=== PATIENT | female | born 2000 | race Caucasian/White ===

== ENCOUNTER 2022-12-13 12:07 | Emergency (ER) | payer OTHER, SELFPAY ==
[2022-12-13 12:19] VITALS: BP 135/95; PULSE 99; RESP 16; TEMP 37.4; O2SAT 98; BMI 26.6
--- NOTE | 2022-12-13 12:31 | ED_ITS ---
HPI - Female Genitourinary General Chief complaint: Urogenital-Female Stated complaint: VAGINAL PAIN/DISCHARGE Time Seen by Provider: 12/13/22 12:20 Source: patient Mode of arrival: walk-in Limitations: no limitations History of Present Illness HPI Narrative: 22-year-old female presented for vaginal discharge and vaginal irritation. Had a slight discharge and had some very slight bleeding as well. She got tested for STDs three months ago and there were negative and she's been with the same person since then. She states she's not worried about STDs. No fever or vomiting or complaints of abdominal pain. Them present for the past several days. Related Data Home Medications Medication Instructions Recorded Confirmed escitalopram oxalate 20 mg tablet 20 mg PO DAILY 12/13/22 12/13/22 lamotrigine 100 mg tablet 100 mg PO DAILY 12/13/22 12/13/22 medroxyprogesterone 150 mg/mL 150 mg IM .q90 days 12/13/22 12/13/22 intramuscular suspension olanzapine 5 mg tablet mg 12/13/22 olanzapine 7.5 mg tablet 7.5 mg PO DAILY 12/13/22 12/13/22 propranolol 10 mg tablet 10 mg PO DAILY 12/13/22 12/13/22 solriamfetol 150 mg tablet (Sunosi) 150 mg PO DAILY 12/13/22 12/13/22 Previous Rx's Medication Instructions Recorded cephalexin 500 mg capsule 500 mg PO TID 7 days #21 caps 12/13/22 Allergies Allergy/AdvReac Type Severity Reaction Status Date / Time No Known Drug Allergies Allergy Verified 12/13/22 12:16 Review of Systems ROS Narrative A ten point review of systems is negative except as noted above. PFSH PFSH Social History Smoking status: Current every day smoker Exam Narrative Exam Narrative: Nurses note and vital signs reviewed and patient is not hypoxic. General: The patient appears well and in no apparent distress. Patient is resting comfortably on cart. Skin: Warm, dry, no pallor noted. There is no rash noted. Head: Normocephalic, atraumatic Eye: Normal conjunctiva, no drainage Ears, Nose, Mouth, and Throat: oral mucosa is moist. Nares patent. Cardiovascular: Regular Rate and Rhythm Respiratory: Patient is in no distress, no accessory muscle use, lungs are clear to auscultation, no wheezing, rales or rhonchi Back: non-tender GI: soft and nontender Musculoskeletal: The patient has no evidence of calf tenderness, no pitting edema, symmetrical pulses noted bilaterally Neurological: A&O, normal speech Psychiatric: Cooperative Constitutional Vital Signs, click to edit/add: Last Vital Signs Temp 99.4 F 12/13/22 12:19 Pulse 99 H 12/13/22 12:19 Resp 16 12/13/22 12:19 BP 135/95 H 12/13/22 12:19 Pulse Ox 98 12/13/22 12:19 O2 Del Method Room Air 12/13/22 12:19 Course Vital Signs Vital signs: Vital Signs Temperature 99.4 F 12/13/22 12:19 Pulse Rate 99 H 12/13/22 12:19 Respiratory Rate 16 12/13/22 12:19 Blood Pressure 135/95 H 12/13/22 12:19 Pulse Oximetry 98 12/13/22 12:19 Oxygen Delivery Method Room Air 12/13/22 12:19 Temperature 99.4 F 12/13/22 12:19 Pulse Rate 99 H 12/13/22 12:19 Respiratory Rate 16 12/13/22 12:19 Blood Pressure 135/95 H 12/13/22 12:19 Pulse Oximetry 98 12/13/22 12:19 Oxygen Delivery Method Room Air 12/13/22 12:19 MDM - Female Genitourinary MDM Narrative Medical decision making narrative: White blood cells are found in the urine and a culture is ordered and she is prescribed Keflex. Initial pelvic swabs are negative with GC and chlamydia pen ding. She'll follow-up with her foreign language stenographer. Treatment diagnosis and follow-up were discussed with the patient. Differential Diagnosis Differential diagnosis: Likely urinary tract infection, bacterial vaginosis, trichomoniasis, cervicitis and vaginitis Lab Data Attestation: I reviewed the patient's lab results. Labs: Lab Results 12/13/22 Range/Units 12:30 Urine Color Lt. yellow (YELLOW) Urine Clarity Slightly cloudy A (CLEAR) Urine pH 5.5 (5.0-9.0) Ur Specific [place] >=1.030 A (1.005-1.025) Urine Protein Negative (NEG/TRACE) mg/dL Urine Glucose (UA) Negative (NEGATIVE) mg/dL Urine Ketones Negative (NEGATIVE) mg/dL Urine Occult Blood Negative (NEGATIVE) Urine Nitrite Negative (NEGATIVE) Urine Bilirubin Negative (NEGATIVE) Urine Urobilinogen 0.2 (0.2-1.0) EU/dL Ur Leukocyte Esterase Moderate A (NEGATIVE) Urine RBC 0-2 (0-2) #/HPF Urine WBC 10-20 A (NONE SEEN) #/HPF Ur Squamous Epith Cells Moderate A (NONE/RARE) #/LPF Urine Crystals None seen (None Seen) #/HPF Urine Bacteria Small A (NONE SEEN) #/HPF Urine Casts None seen (NONE SEEN) #/LPF Urine Mucus None seen (NONE SEEN) Urine HCG, Qual Negative (NEGATIVE) Discharge Plan Discharge Chief Complaint: Urogenital-Female Clinical Impression: Urinary tract infection, Vaginal discharge Patient Disposition: Home, Self-Care Time of Disposition Decision: 13:37 Condition: Good Mode of Transportation: Private Vehicle Prescriptions / Home Meds: New cephalexin 500 mg capsule 500 mg PO TID 7 Days Qty: 21 0RF No Action lamotrigine 100 mg tablet 100 mg PO DAILY escitalopram oxalate 20 mg tablet 20 mg PO DAILY medroxyprogesterone 150 mg/mL suspension 150 mg IM .q90 days olanzapine 5 mg tablet olanzapine 7.5 mg tablet 7.5 mg PO DAILY propranolol 10 mg tablet 10 mg PO DAILY Sunosi 150 mg tablet 150 mg PO DAILY Instructions: Urinary Tract Infection in Women (ED), Vaginal Discharge (ED) Stand Alone Forms: Portal Instructions Referrals: Physician,Non-Staff, MD [Primary Care Provider] - 1 week
[2022-12-13 13:04] LABS: Bilirubin Urine NEGATIVE (NEGATIVE); Blood Urine NEGATIVE (NEGATIVE); Color Urine LT. YELLOW (YELLOW); Glucose Urine UA NEGATIVE (NEGATIVE); Ketones Urine NEGATIVE (NEGATIVE); Leukocyte Esterase Urine MODERATE (NEGATIVE); Nitrite Urine NEGATIVE (NEGATIVE); Protein Urine NEGATIVE (NEG/TRACE); Specific Gravity Urine >=1.030 (1.005-1.025); Urobilinogen Urine 0.2 EU/dL (0.2-1.0); pH Urine 5.5 (5.0-9.0)
[2022-12-13 13:06] LABS: Clarity Urine SLIGHTLY CLOUDY (CLEAR)
[2022-12-13 13:07] LABS: HCG Qualitative Urine* NEGATIVE (NEGATIVE)
[2022-12-13 13:09] LABS: Bacteria Urine SMALL #/HPF (NONE SEEN); Cast Seen? NONE SEEN #/LPF (NONE SEEN); Crystals Seen? None Seen #/HPF (None Seen); Mucus Urine NONE SEEN (NONE SEEN); RBC Urine 0-2 #/HPF (0-2); Squamous Epithelial Cell Urine MODERATE #/LPF (NONE/RARE)
[2022-12-14 22:06] LABS: Neisseria gonorrhoeae, NAA Negative (Negative)
== END 2022-12-13 13:53 | disposition home or self-care (01) ==
PROVIDERS: Emergency Provider Emergency Medicine
DX: N39.0 Urinary tract infection, site not specified (principal); N89.8 Other specified noninflammatory disorders of vagina; Z79.899 Other long term (current) drug therapy; F17.210 Nicotine dependence, cigarettes, uncomplicated
CPT/HCPCS: 81001; 84703; 87210; 87491; 87591; 99283

== ENCOUNTER 2022-12-27 01:10 | Emergency (ER) | payer OTHER, SELFPAY ==
[2022-12-27] VITALS (16 sets, daily range): BP systolic 108–139; BP diastolic 65–96; PULSE 67–87; RESP 14–25; TEMP 36.6; O2SAT 97–99; BMI 26.6
--- NOTE | 2022-12-27 01:16 | ECG_ITS ---
The [facility] Test Date: 2022-12-27 Pat Name: DANY SALINAS Department: Room: - Gender: Female [employer] Developer: : 2000 Requested By: [id number] Order Number: [id number] Reading MD: CHAN KEARNS Measurements Intervals [place] Rate: 78 P: 53 IA: 164 QRS: 78 QRSD: 80 T: 38 QT: 378 QTc: 412 Interpretive Statements 1100 Sinus rhythm 9110 normal ECG No previous ECG available for comparison Electronically Signed On 12-27-2022 7:05:21 EDT by CHAN KEARNS
--- NOTE | 2022-12-27 01:37 | ED.CHESTPAI1 ---
HPI - Chest Pain General Chief Complaint: Chest Pain Stated Complaint: chest pain sob Time Seen by Provider: 12/27/22 01:13 Source: patient and family Mode of arrival: walk-in History of Present Illness HPI narrative: This 22-year-old female who does not smoke cigarettes but uses a vape pen 6 or 7 times a day presents for evaluation of midsternal chest pain with shortness of breath, pain with deep inspiration and nausea with 1 episode of vomiting upon arrival. She states that she felt fine when she went to bed. She denies any excessive oral intake prior to going to bed. She is adopted so there is no known family history. She denies any abdominal pain at this time. She denies the possibility of . She is on control. She has no lower extremity pain or swelling. She has not had a fever. She has an occasional dry cough. She denies any dizziness or syncope. She denies any sore throat, ear pain fever or other COVID related symptoms. Related Data Home Medications Medication Instructions Recorded Confirmed escitalopram oxalate 20 mg tablet 20 mg PO DAILY 12/13/22 12/27/22 lamotrigine 100 mg tablet 100 mg PO DAILY 12/13/22 12/27/22 medroxyprogesterone 150 mg/mL 150 mg IM .q90 days 12/13/22 12/27/22 intramuscular suspension olanzapine 5 mg tablet mg 12/13/22 olanzapine 7.5 mg tablet 7.5 mg PO DAILY 12/13/22 12/27/22 propranolol 10 mg tablet 10 mg PO DAILY 12/13/22 12/27/22 solriamfetol 150 mg tablet (Sunosi) 150 mg PO DAILY 12/13/22 12/13/22 Previous Rx's Medication Instructions Recorded cephalexin 500 mg capsule 500 mg PO TID 7 days #21 caps 12/13/22 Allergies Allergy/AdvReac Type Severity Reaction Status Date / Time No Known Drug Allergies Allergy Verified 12/27/22 01:13 Review of Systems ROS Status of ROS 10 or more systems reviewed and unremarkable except as noted in history and below [facility] Social History Smoking status: Current every day smoker Exam Narrative Exam Narrative: Nurses note and vital signs reviewed and patient is not hypoxic. General: The patient appears well and in no apparent distress. Patient is resting comfortably on cart. No respiratory distress, no active vomiting Skin: Warm, dry, no pallor noted. There is no rash noted. Head: Normocephalic, atraumatic Eye: Normal conjunctiva, no drainage, EOMI. PERRL Ears, Nose, Mouth, and Throat: oral mucosa is moist. Cardiovascular: Regular Rate and Rhythm S1 S2, no murmurs, rubs or gallops, midsternal chest wall tenderness without crepitus Respiratory: Patient is in no distress, no accessory muscle use, lungs are clear to auscultation, no wheezing, rales or rhonchi Back: non-tender, no CVA tenderness bilaterally to percussion. GI: Normal bowel sounds, no tenderness to palpation, no masses appreciated. No rebound, guarding, or rigidity noted. Musculoskeletal: The patient has no evidence of calf tenderness, no pitting edema, symmetrical pulses noted bilaterally Neurological: A&O x4, normal speech Psychiatric: Cooperative Constitutional Vital Signs, click to edit/add: Last Vital Signs Temp 98 F 12/27/22 01:13 Pulse 72 12/27/22 03:10 Resp 22 12/27/22 03:10 BP 108/65 12/27/22 03:00 Pulse Ox 98 12/27/22 03:00 O2 Del Method Room Air 12/27/22 01:13 Course Vital Signs Vital signs: Vital Signs Temperature 98 F 12/27/22 01:13 Pulse Rate 82 12/27/22 01:13 Respiratory Rate 18 12/27/22 01:13 Blood Pressure 139/88 12/27/22 01:13 Pulse Oximetry 99 12/27/22 01:13 Oxygen Delivery Method Room Air 12/27/22 01:13 Temperature 98 F 12/27/22 01:13 Pulse Rate 72 12/27/22 03:10 Respiratory Rate 22 12/27/22 03:10 Blood Pressure 108/65 12/27/22 03:00 Pulse Oximetry 98 12/27/22 03:00 Oxygen Delivery Method Room Air 12/27/22 01:13 MDM - Chest Pain MDM Narrative Medical decision making narrative: This otherwise healthy 22-year-old female who is on control and uses a vapor pen presents for evaluation of midsternal chest pain and shortness of breath with pain with deep inspiration. She went to bed feeling fine and woke up with nausea and had an episode of vomiting when her symptoms started. She denies any dizziness or syncope. She is not having any abdominal pain upon arrival. She was tender in her mid sternum. Her vital signs are stable. An IV was placed and she was medicated with IV fluids, Toradol and Zofran and Pepcid. EKG done upon arrival was a normal sinus rhythm with no acute changes. Routine labs including troponin and d-dimer were ordered. Her labs are normal. Reevaluation she stated she was feeling much better. She does not require any discharge medications and was discharged home with her mother. She was encouraged to quit vaping. Urine was positive for 20-50 WBCs/hpf. She did not have any complaints of urinary symptoms and culture is pending. Follow up phone call on 12/27/22 ; pt states she is feeling much better today, She is not having any urinary symptoms, abdominal or back pain. She also states that she always has signs of an infection in her urine. Her chest pain, shortness of breath and nausea have resolved. Medical Records Data Medical records narrative: The [address] [address] XRay Report Signed Patient: DANY SALINAS MR#: [id number] : 2000 Acct:[id number] Age/Sex: 22 / F ADM Date: 12/27/22 Loc: ER Attending Dr: Ordering Physician: Callie Ulloa Date of Service: 12/27/22 Procedure(s): XR chest 2V Accession Number(s): [id number] cc: Callie Ulloa; Physician,Non-Staff M.D.~ The [address] [address] Patient Name: DANY SALINAS MRN: [id number] date: 2000 Sex: F Assigned Patient Location: ER Current Patient Location: Accession/Order Number: [id number] Exam Date: 12/27/2022 02:55 Report Date: 12/27/2022 03:29 At the request of: CALLIE ULLOA Procedure: XR chest 2V EXAM: XR chest 2V HISTORY: Midsternal chest pain with dyspnea for one day. Nonproductive cough for 2 days. COMPARISON: Chest x-ray, 12/01/2021. TECHNIQUE: Frontal and lateral chest radiographs. FINDINGS: The heart, mediastinum, lungs and pleural spaces appear within normal limits. The bony thorax is intact and unremarkable. XR/XR chest 2V IMPRESSION: Nonacute chest. Lab Data Labs: Lab Results 12/27/22 12/27/22 Range/Units 01:20 02:40 WBC 8.8 (4.0-11.0) 10^3/uL RBC 4.39 (4.20-5.40) 10^6/uL Hgb 14.1 (12.0-16.0) g/dL Hct 39.7 (36.0-48.0) % MCV 90.4 (81.0-99.0) fL MCH 32.1 (26.7-34.0) pg MCHC 35.5 H (29.9-35.2) g/dL RDW 12.0 (11.0-15.0) % Plt Count 312 (150-450) 10^3/uL MPV 8.7 L (9.5-13.5) fL Neut % (Auto) 54.9 (43.0-75.0) % Lymph % (Auto) 37.5 (20.5-60.0) % Barry % (Auto) 5.2 (1.7-12.0) % Eos % (Auto) 1.7 (0.9-7.0) % Baso % (Auto) 0.5 (0.2-2.0) % Neut # (Auto) 4.8 (1.4-6.5) 10^3/uL Lymph # (Auto) 3.3 (1.2-3.8) 10^3/uL Barry # (Auto) 0.5 (0.3-0.8) 10^3/uL Eos # (Auto) 0.2 (0.0-0.7) 10^3/uL Baso # (Auto) 0.0 (0.0-0.1) 10^3/uL Abs Immat Gran (auto) 0.02 (0.00-0.03) 10^3/uL Imm/Tot Granulo (auto) 0.2 (0.0-0.5) % D-Dimer 0.23 (<=0.59) mg/L FEU Sodium 133 L (136-145) mmol/L Potassium 3.5 (3.5-5.1) mmol/L Chloride 102 (98-107) mmol/L Carbon Dioxide 23.1 (21.0-32.0) mmol/L Anion Gap 11.4 BUN 16.0 (7.0-18.0) mg/dL Creatinine 1.10 H (0.55-1.02) mg/dL Est GFR ( Amer) >60 (>=60) Est GFR (Non-Af Amer) >60 (>=60) BUN/Creatinine Ratio 14.5 Glucose 96 (74-106) mg/dL Calcium 9.2 (8.5-10.1) mg/dL Total Bilirubin 0.5 (0.2-1.0) mg/dL AST 29 (15-37) U/L ALT 51 (14-59) U/L Alkaline Phosphatase 96 (46-116) U/L Troponin I High Sens <4.0 L (4.0-51.3) pg/mL Total Protein 7.7 (6.4-8.2) g/dL Albumin 3.9 (3.4-5.0) g/dL Globulin 3.8 g/dL Albumin/Globulin Ratio 1.0 Lipase 52.0 (16.0-77.0) U/L Serum HCG, Qual Negative (NEGATIVE) Urine Color Lt. yellow (YELLOW) Urine Clarity Clear (CLEAR) Urine pH 6.0 (5.0-9.0) Ur Specific [place] 1.020 (1.005-1.025) Urine Protein Negative (NEG/TRACE) mg/dL Urine Glucose (UA) Negative (NEGATIVE) mg/dL Urine Ketones Negative (NEGATIVE) mg/dL Urine Occult Blood Trace-i (NEGATIVE) Urine Nitrite Negative (NEGATIVE) Urine Bilirubin Negative (NEGATIVE) Urine Urobilinogen 0.2 (0.2-1.0) EU/dL Ur Leukocyte Esterase Large A (NEGATIVE) Urine RBC 2-5 A (0-2) #/HPF Urine WBC 20-50 A (NONE SEEN) #/HPF Ur Squamous Epith Cells Moderate A (NONE/RARE) #/LPF Urine Crystals Seen A (None Seen) #/HPF Calcium Oxalate Crystal Rare Urine Bacteria Small A (NONE SEEN) #/HPF Urine Casts None seen (NONE SEEN) #/LPF Urine Mucus None seen (NONE SEEN) Ur Culture Indicated? Yes ECG Data Attestation: I personally reviewed and interpreted this ECG as follows: (Sinus rhythm at 70 beats for minute, normal axis, normal intervals, no acute ST segment elevation or T-wave inversion) Discharge Plan Discharge Chief Complaint: Chest Pain Clinical Impression: Chest pain, non-cardiac, Vomiting Patient Disposition: Home, Self-Care Time of Disposition Decision: 03:06 Condition: Good Prescriptions / Home Meds: No Action lamotrigine 100 mg tablet 100 mg PO DAILY escitalopram oxalate 20 mg tablet 20 mg PO DAILY medroxyprogesterone 150 mg/mL suspension 150 mg IM .q90 days olanzapine 5 mg tablet olanzapine 7.5 mg tablet 7.5 mg PO DAILY propranolol 10 mg tablet 10 mg PO DAILY Sunosi 150 mg tablet 150 mg PO DAILY cephalexin 500 mg capsule 500 mg PO TID 7 Days Qty: 21 0RF Instructions: Acute Nausea and Vomiting (ED), Noncardiac Chest Pain (ED) Stand Alone Forms: Portal Instructions Referrals: Physician,Non-Staff, MD [Primary Care Provider] - 1 week Discharge Date/Time: 12/27/22 03:14
[2022-12-27 01:46] LABS: Basophils Percent Auto 0.5 % (0.2-2.0); Eosinophils Absolute Auto 0.2 10^3/uL (0.0-0.7); Eosinophils Percent Auto 1.7 % (0.9-7.0); Hematocrit 39.7 % (36.0-48.0); Hemoglobin 14.1 g/dL (12.0-16.0); Immature Granulocytes Abs Auto 0.02 10^3/uL (0.00-0.03); Immature Granulocytes Pct Auto 0.2 % (0.0-0.5); Lymphocytes Absolute Auto 3.3 10^3/uL (1.2-3.8); Lymphocytes Percent Auto 37.5 % (20.5-60.0); Mean Corpuscular HGB Conc 35.5 g/dL (29.9-35.2); Mean Corpuscular Hemoglobin 32.1 pg (26.7-34.0); Mean Corpuscular Volume 90.4 fL (81.0-99.0); Mean Platelet Volume 8.7 fL (9.5-13.5); Monocytes Absolute Auto 0.5 10^3/uL (0.3-0.8); Monocytes Percent Auto 5.2 % (1.7-12.0); Neutrophils Absolute Auto 4.8 10^3/uL (1.4-6.5); Neutrophils Percent Auto 54.9 % (43.0-75.0); Platelet Count 312 10^3/uL (150-450); Red Blood Count 4.39 10^6/uL (4.20-5.40); White Blood Count 8.8 10^3/uL (4.0-11.0)
[2022-12-27] MEDS: FAMOTIDINE/PF 20 MG/2 ML VIAL IV (01:49)
[2022-12-27] MEDS: ONDANSETRON PF 4 MG/2 ML VIAL IV (01:49)
[2022-12-27 01:57] LABS: HCG Qualitative NEGATIVE (NEGATIVE)
[2022-12-27 01:59] LABS: Alanine Aminotransferase 51 U/L (14-59); Albumin Level 3.9 g/dL (3.4-5.0); Alkaline Phosphatase 96 U/L (46-116); Anion Gap 11.4; Aspartate Amino Transferase 29 U/L (15-37); BUN Creatinine Ratio 14.5; Bilirubin Total 0.5 mg/dL (0.2-1.0); Calcium 9.2 mg/dL (8.5-10.1); Carbon Dioxide 23.1 mmol/L (21.0-32.0); Chloride 102 mmol/L (98-107); D Dimer 0.23 mg/L FEU (<=0.59); Estimated GFR (African America >60 (>=60); Estimated GFR (Non-African Ame >60 (>=60); Globulin 3.8 g/dL; Glucose 96 mg/dL (74-106); Potassium 3.5 mmol/L (3.5-5.1); Sodium 133 mmol/L (136-145); Total Protein 7.7 g/dL (6.4-8.2)
[2022-12-27] MEDS: KETOROLAC TROMETHAMINE 30 MG/ML VIAL IVP (02:02)
[2022-12-27 02:45] LABS: Bilirubin Urine NEGATIVE (NEGATIVE); Blood Urine TRACE-I (NEGATIVE); Clarity Urine CLEAR (CLEAR); Color Urine LT. YELLOW (YELLOW); Glucose Urine UA NEGATIVE (NEGATIVE); Ketones Urine NEGATIVE (NEGATIVE); Leukocyte Esterase Urine LARGE (NEGATIVE); Nitrite Urine NEGATIVE (NEGATIVE); Protein Urine NEGATIVE (NEG/TRACE); Urobilinogen Urine 0.2 EU/dL (0.2-1.0)
--- NOTE | 2022-12-27 02:45 | XR_ITS ---
The [place] [id number] Patient Name: DANY SALINAS MRN: [id number] date: 2000 Sex: F Assigned Patient Location: ER Current Patient Location: Accession/Order Number: [id number] Exam Date: 12/27/2022 02:55 Report Date: 12/27/2022 03:29 At the request of: CALLIE MARKER Procedure: XR chest 2V EXAM: XR chest 2V HISTORY: Midsternal chest pain with dyspnea for one day. Nonproductive cough for 2 days. COMPARISON: Chest x-ray, 12/01/2021. TECHNIQUE: Frontal and lateral chest radiographs. FINDINGS: The heart, mediastinum, lungs and pleural spaces appear within normal limits. The bony thorax is intact and unremarkable. XR/XR chest 2V IMPRESSION: Nonacute chest. Electronically authenticated by: YESENIA BIRD Date: 12/27/2022 03:29
[2022-12-27 02:51] LABS: Troponin I High Sensitivity <4.0 pg/mL (4.0-51.3)
[2022-12-27 02:55] LABS: Bacteria Urine SMALL #/HPF (NONE SEEN); Calcium Oxalate Crystals Urine RARE; Cast Seen? NONE SEEN #/LPF (NONE SEEN); Crystals Seen? Seen #/HPF (None Seen); Mucus Urine NONE SEEN (NONE SEEN); Squamous Epithelial Cell Urine MODERATE #/LPF (NONE/RARE); Urine Culture Indicated YES; WBC Urine 20-50 #/HPF (NONE SEEN)
== END 2022-12-27 03:14 | disposition home or self-care (01) ==
PROVIDERS: Emergency Provider Emergency Medicine
DX: R07.89 Other chest pain (principal); R11.10 Vomiting, unspecified; F17.290 Nicotine dependence, other tobacco product, uncomplicated; Z79.899 Other long term (current) drug therapy; Z79.3 Long term (current) use of hormonal contraceptives
CPT/HCPCS: 36415; 71046; 80053; 81001; 83690; 84484; 84703; 85025; 85378; 87086; 93005; 96374; 96375; 99285